=== PATIENT | female | born 1940 | race Caucasian/White ===

== ENCOUNTER → 2017-03-13 | Outpatient (CLI) | payer MEDICARE ==
[2016-08-16 14:47] VITALS: BP 135/74
[~2017-03-13] MED LIST: ATOR20TA58 PO; CALCIUM PLUS D; HYDR12.53 PO; LISI10TA2 PO; WARF-78 PO
--- NOTE | 2017-03-13 12:44 | KCIC ---
PROCEDURE CT scan of the paranasal sinuses without contrast 03/13/2017 HISTORY Chronic sinus drainage and cough. TECHNIQUE Unenhanced contiguous, 0.6 millimeter axial sections were obtained through the paranasal sinuses. 2 millimeter reconstructed sagittal, axial and coronal images were obtained. One or more of the following individualized dose reduction techniques were utilized for this study: 1. Automated exposure control. 2. Adjustment of the mA and/or kV according to patient size. 3. Use of iterative reconstruction technique. FINDINGS Mild mucosal thickening is seen involving the ethmoid air cells bilaterally and both maxillary sinuses. The remaining paranasal sinuses are clear. The ostiomeatal units are patent bilaterally. Mild bony nasal septal deviation to the right is noted. There is a large right mastoid effusion. The right middle ear cavity is opacified with fluid and/or inflammatory debris. IMPRESSION Mild mucosal thickening is seen involving the ethmoid air cells and both maxillary sinuses. The remaining paranasal sinuses are clear. No air-fluid level is seen. Large right mastoid effusion. Electronically signed by: Alin Gordon MD (March 13, 2017 12:43:04)
== END | disposition home or self-care (01) ==
LOC: KCIC CT 10:31
PROVIDERS: ATTEND Specialist
DX: J32.9 Chronic sinusitis, unspecified (principal)
CPT/HCPCS: 70486

== ENCOUNTER → 2018-08-03 | Outpatient (CLI) | payer MEDICARE ==
[2016-08-16 14:47] VITALS: BP 135/74
[2018-08-03 13:44] LABS: BASO # 0.1 x10^3/uL (0.0-0.2); BASO % 1 % (0-3); EOS # 0.1 x10^3/uL (0.0-0.7); EOS % 1 % (0-3); HEMATOCRIT 38.7 % (36.0-47.0); HEMOGLOBIN 13.5 g/dL (12.0-15.5); LYMPH # 0.9 x10^3/uL (1.0-4.8); LYMPH % 16 % (24-48); MEAN CORPUSCULAR HEMOGLOBIN 33 pg (25-35); MEAN CORPUSCULAR HGB CONC 35 g/dL (31-37); MEAN CORPUSCULAR VOLUME 94 fL (79-100); MONO # 0.4 x10^3/uL (0.0-1.1); MONO % 7 % (0-9); NEUT # 4.4 x10^3uL (1.8-7.7); NEUT % 74 % (31-73); PLATELET COUNT 234 x10^3/uL (140-400); RED BLOOD COUNT 4.12 x10^6/uL (3.50-5.40); RED CELL DISTRIBUTION WIDTH 12.9 % (11.5-14.5); WHITE BLOOD COUNT 5.9 x10^3/uL (4.0-11.0)
[2018-08-03 13:49] LABS: BILIRUBIN,URINE NEGATIVE (NEG); CLARITY,URINE CLEAR; COLOR,URINE YELLOW; NITRITE,URINE NEGATIVE (NEG); PROTEIN,URINE NEGATIVE (NEG-TRACE); UROBILINOGEN,URINE 0.2 mg/dL (0.2 mg/dL)
[2018-08-03 13:55] LABS: PROTHROMBIN TIME PATIENT 13.5 SEC (11.7-14.0)
[2018-08-03 14:02] LABS: ALBUMIN 3.9 g/dL (3.4-5.0); CALCIUM 9.4 mg/dL (8.5-10.1); CREATININE 0.9 mg/dL (0.6-1.0); GFR 60.9; POTASSIUM 3.9 mmol/L (3.5-5.1)
--- NOTE | 2018-08-03 14:06 | EKG ---
[facility] [address] [place] [address] Test Date: 2018-08-03 Test Time: 14:00:26 Pat Name: ROSCOE SANCHEZ Department: Room: Gender: F Fruit Tester: : 1940 Requested By: FRIDA SILVA Order Number: [id number] Reading MD: Noah Michel MD Measurements Intervals [place] Rate: 62 P: 42 VA: 126 QRS: 47 QRSD: 84 T: 54 QT: 394 QTc: 402 Interpretive Statements SINUS RHYTHM Electronically Signed On 08-05-2018 12:21:10 CDT by Noah Michel MD
[2018-08-03 14:27] LABS: BACTERIA,URINE 0 /HPF (0-FEW); RBC,URINE RARE /HPF (0-2); SQUAMOUS EPITHELIAL CELL,UR OCC /LPF; WBC,URINE 0 /HPF (0-4)
--- NOTE | 2018-08-03 15:01 | RAD ---
AP and Lateral Views of the Chest 08/03/2018 12:59 PM Indication: PRE OP FOR RIGHT KNEE REPLACEMENT ON 08/25/18 Comparison: Chest radiograph July 22, 2016 Findings: No pneumothorax or pleural effusion is seen. No focal consolidation or infiltrate is identified. Mild left basilar scarring versus prominent pericardial fat noted. Heart size is normal. Bony thorax is grossly intact. IMPRESSION: No radiographic evidence of acute cardiopulmonary process. Electronically signed by: Ras Curtis MD (08/03/2018 2:58 PM) [id number]
== END | disposition home or self-care (01) ==
LOC: SURGPAT 12:46
PROVIDERS: ATTEND Orthopaedic Surgery
DX: Z01.818 Encounter for other preprocedural examination (principal); M17.11 Unilateral primary osteoarthritis, right knee; E78.00 Pure hypercholesterolemia, unspecified; I10 Essential (primary) hypertension; E66.9 Obesity, unspecified; K21.9 Gastro-esophageal reflux disease without esophagitis; F17.200 Nicotine dependence, unspecified, uncomplicated; Z98.42 Cataract extraction status, left eye; Z98.41 Cataract extraction status, right eye; Z90.710 Acquired absence of both cervix and uterus; Z90.721 Acquired absence of ovaries, unilateral
CPT/HCPCS: 36415; 71046; 80048; 81001; 82040; 82306; 85025; 85610; 85651; 85730; 87641; 93005

== ENCOUNTER 2018-08-25 10:33 | Inpatient (IN) | payer MEDICARE ==
--- NOTE | 2018-08-24 11:04 | PDOC1 ---
History and Physical Date of Admission Date of Admission DATE: 08/25/18 Identification/Chief Complaint Chief Complaint right knee osteoarthritis pain Source Source: Chart review History of Present Illness History of Present Illness The patient is a 77 y/o female with right knee pain for several years. The pain is exacerbated by movement and range of motion. She notes she has a history of knee instability. She has a history of a left total knee in 2012 with revision on 08/13/16. She states the left knee is now her good knee. She does occasionally experience some soreness and discomfort. The knee pain is exacerbated by bicycling. She is ready to proceed with right total knee arthroplasty today as she did get significant symptomatic relief from her left total knee arthroplasty. She arrived ambulating without assistive devices. Past Medical History Cardiovascular: HTN, Hyperlipidemia GI: GERD Renal/: Chronic renal insuff Past Surgical History Past Surgical History: Cataract Removal, Total knee replacement (left - 2012, with revision on 08/13/16), Hysterectomy Family History Family History: Cancer, Heart Disease Social History Smoke: No ALCOHOL: none Drugs: None Current Medications Current Medications Current Medications Morphine Sulfate 5 mg/Ropivacaine 60 ml/Epinephrine HCl 0.5 mg/Sodium Chloride 99 ml @ 99 mls/hr 1X ONCE INT ART ; Start 08/25/18 at 06:00; Stop 08/25/18 at 06:59 Active Scripts Active Reported [Calcium Plus D] DAILY LAST DOSE GIVEN: DATE:07/17/16 TIME:9:00 a.m. NEXT DOSE DUE: DATE:07/18/16 TIME:9:00 a.m. Atorvastatin Calcium 20 Mg Tablet 20 Mg PO HS LAST DOSE GIVEN: DATE:07/16/16 TIME:9:00 p.m. NEXT DOSE DUE: DATE:07/17/16 TIME:9:00 p.m. Lisinopril 10 Mg Tablet 10 Mg PO DAILY LAST DOSE GIVEN: DATE:07/17/16 TIME:9:00 a.m. NEXT DOSE DUE: DATE:07/18/16 TIME:9:00 a.m. Allergies Allergies: Coded Allergies: NSAIDS (Non-Steroidal Anti-Inflamma (Verified Allergy, Intermediate, ) DOESN'T TAKE BECAUSE OF KIDNEY DISEASE Tetanus Vaccines and Toxoid (Verified Allergy, Intermediate, Swelling, 08/03/18) ARM SWELLED aspirin (Verified Allergy, Intermediate, 08/03/18) DOESN'T TAKE BECAUSE OF KIDNEY DISEASE influenza virus vaccine, specific (Verified Allergy, Intermediate, Swelling, 08/03/18) Physical Exam General: Alert, Oriented X3, Cooperative, No acute distress HEENT: Atraumatic, EOMI Lungs: Normal air movement Heart: RRR Abdomen: Soft Extremities: No clubbing, No cyanosis, Normal pulses, Other (RIGHT KNEE: mildly antalgic gait. There is varus alignment. No masses. No detectable effusion. Tenderness on the medial and lateral joint lines. Range of motion is 2 -125 degrees. There is crepitus with range of motion, and pain at the extremes of motion. Pain with varus and valgus stress without subluxation or laxity. Muscle strength is normal (5/5) for quadriceps and hamstrings, and muscle tone is normal. The skin is normal with no scars, rashes, lesions or ulcers. Light touch sensation is intact. No edema and no varicosities. Dorsalis pedis pulse is intact and capillary refill is normal.) Skin: No rashes, No breakdown, No significant lesion Neuro: Normal speech, Sensation intact Psych/Mental Status: Mental status NL, Mood NL Images Images IMAGING REPORT Joint survey, hips knees and ankles Clinical information: Preoperative for total knee arthroplasty Comparison: None. Findings Bones: There is a left total knee arthroplasty with revision femoral stem and standard tibial component, with expected alignment. The angle between the right hip- ankle mechanical axis and the femoral shaft is 5 degrees. The angle between the left hip-ankle mechanical axis and the femoral shaft is 5 degrees. From hip to ankle, the right lower extremity is in 9 degrees of varus. From hip to ankle, the left lower extremity is in 2degrees of varus. Joints: There is narrowing of the right knee joint medially. The joint space of the prosthetic left knee joint appears normal. The hips and ankles show minimal degenerative changes. Soft tissue: Normal. Impression: Varus alignment of the right knee. Normal anatomic alignment of the left prosthetic knee. The difference between the mechanical axis and femoral shaft anatomic axis is 5 degrees bilaterally. Dictated and Signed Using Voice Recognition Software Felipe Rodarte MD VTE Prophylaxis Ordered VTE Prophylaxis Devices: Yes VTE Pharmacological Prophylaxi: Yes Assessment/Plan Assessment/Plan Right knee osteoarthritis pain. The patient would like to proceed with total knee replacement. We will send her to the [facility] preoperatively, and she will schedule at her convenience. We discussed the risks and benefits of knee replacement including bleeding, infection, post-operative stiffness, instability, ariane-prosthetic fracture, DVT and PE. All questions were answered. She would like to proceed with the surgery to improve her pain with activity. Follow up with me 10-14 days after surgery. MK MENDEZ Aug 24, 2018 11:04
[~2018-08-25] VITALS: Ht 160 cm; Wt 77.6 kg
[2018-08-25] VITALS (7 sets, daily range): BP systolic 121–160; BP diastolic 64–85
[~2018-08-25 10:33] MED LIST changes: +ACETAMINOPHEN 500 MG TABLET PO PRN; +HYDROmorphone 2 MG/ML VIAL IV PRN; +IV RINGERS,LACTATED 1000ML 1,000 ML IV SCH; +LIDOCAINE 1% PF 2 ML VIAL. ID PRN; +LIDOCAINE 2% PF Vial for OR 5 ML VIAL. ONE; +MORPHINE SULFATE 2 MG/ML VIAL. IV PRN; +ONDANSETRON PF 4 MG/2 ML VIAL. IV PRN; +PROCHLORPERAZINE 10 MG/2 ML VIAL. IV PRN; +PROPOFOL 20 ML IV ONE; +TRANEXAMIC ACID 1,000 MG in IV NS 50ML -- 1ST BAG INJ ONE; +TRANEXAMIC ACID 1,000 MG in IV NS 50ML -- 2ND BAG INJ ONE; +fentaNYL PF VIAL 100 MCG/2 ML VIAL IV PRN; +fentaNYL PF VIAL 100 MCG/2 ML VIAL ONE
[2018-08-25] MEDS ORDERED: VANCOMYCIN 1 GM VIAL. ONE (10:52)
[2018-08-25] MEDS ORDERED: TOBRAMYCIN POWDER 1.2 GM VIAL. ONE (10:53)
[2018-08-25] MEDS ORDERED: iron (11:26)
[2018-08-25] MEDS ORDERED: DEXAMETHASONE SOD PHOS 20 MG/5 ML VIAL. ONE (13:34)
[2018-08-25] MEDS ORDERED: SEVOFLURANE 61 TO 120 MINUTES. IH ONE (13:34)
[2018-08-25] MEDS ORDERED: ONDANSETRON PF 4 MG/2 ML VIAL. ONE (13:51)
[2018-08-25] MEDS ORDERED: hydrALAZINE 20 MG/ML VIAL. ONE (14:15)
[2018-08-25] MEDS ORDERED: fentaNYL PF VIAL 100 MCG/2 ML VIAL ONE ×3 (14:19→16:24)
--- NOTE | 2018-08-25 15:51 | PDOC4 ---
Operative Note Operative Note Date of Procedure: August 25, 2018 Pre-Op Diagnosis: Osteoarthritis right knee Post-Op Diagnosis: Osteoarthritis right knee Procedure: right total knee arthroplasty with patella resurfacing Surgeon: Frida Rodarte MD Ssn/Ssbn Assistant Navigator: Michelle Murrell PA-C Anesthesia: General EBL: 100 mL Specimens Obtained: right knee bone and soft tissue Complications: none Implant Company: [employer] Drains: hemovac plus pain catheter Tourniquet time: 51 Minutes Tourniquet Pressure: 350 mm Hg Indications for Procedure: Arthritis pain unrelieved by nonoperative management Findings: Severe osteoarthritis with bone on bone contact medially with full thickness cartilage loss in the patellofemoral and lateral compartments, large medial osteophytes required removal with osteotome Implants used: Size 3 right bicruciate stabilized Journey II BCS cobalt chrome femoral component, size 2 right Journey nonporous tibial baseplate, size 1-2 13 mm right Journey II BCS XLPE constrained articular insert, 29 mm oval Aura II resurfacing patellar component Procedure in Detail: The patient was identified in the preoperative holding area, and the correct right lower extremity was marked by me. The patient was taken to the operating room where the patient was anesthetized by the Department of Anesthesia. Preoperative antibiotics were given intravenously. Tranexamic acid 1 g was given intravenously for intraoperative hemostasis. A "time-out" procedure was performed. The patient was positioned supine on the operative table with a tourniquet on the upper right thigh. The right lower limb was thoroughly scrubbed, then sterile surgical prep solution was applied, and the limb was draped in sterile fashion. An impervious stockinet and adhesive drape were used such that the skin was entirely covered. An Garcia leg davis was used. The operating team wore personal exhaust-ventilated hoods. The limb exsanguinated with an Esmarch bandage, and the tourniquet was inflated. A midline skin incision was made with a scalpel using the patella and tibial tubercle as landmarks. Electrocautery was used for hemostasis. My finance assistant used rake retractors. A medial parapatellar arthrotomy incision was used with extension into the distal quadriceps tendon. The patella was retracted laterally and Hohmann retractors were now used by my finance assistant. Excess synovium, the menisci, and the cruciate ligaments were resected sharply. The patella was assessed and excess synovium and osteophytes around the patellar articulation were removed. The patella was measured with a caliper, cut freehand with a saw using caliper measurements, sized, and then drilled for an oval three-pegged patella component. Periarticular anesthetic injection was used in the suprapatellar pouch and distal quadriceps muscle. Whitesides's line and the transepicondylar axis were marked on the femur. An intra-medullary 5 degree cutting guide was pinned to the femur, and a distal femoral cut was made with an oscillating saw. An additional 2 mm resection was used due to the deep femoral sulcus, and deficient condyle. My finance assistant held Hohmann retractors and an Army-Mims retractor to protect the medial and lateral collateral ligaments, the patellar tendon, the skin and the other soft tissues. A posterior referencing guide was applied with external rotation of 3 to match Whitesides line. A 5-in-1 Journey II cutting guide was then applied and pinned to the femur. The posterior, anterior, and all chamfer cuts were made with the oscillating saw. An extramedullary guide was pinned to the tibia and rotational alignment and the planned resection thickness assessed. An external alignment [place] was used to verify the planned cut in the varus-valgus plane and regarding posterior slope referencing the tibial tubercle, the tibial shaft, the ankle joint, and the second metatarsal. The upper tibia was cut made with an oscillating saw. My finance assistant held Hohmann retractors and a posterior cruciate ligament retractor to protect the medial and lateral collateral ligaments, the patellar tendon, the skin, the peroneal nerve and the other soft tissues. The upper tibia was sized with a trial baseplate. The posterior compartment was cleared of osteophytes and loose bodies. Periarticular anesthetic injection was used in the posterior compartment. The box cut for a posterior stabilized component was made. A preliminary reduction was performed with a trial femur, trial tibial baseplate and trial polyethylene. Soft-tissue balancing was now performed, and extension and rotation of the alignments was checked using a guide [place] in the tibial trial and a guide pin in the femur. No additional releases were required. The stability was assessed using different thicknesses of tibial articular surface to find satisfactory stability and good range of motion. The rotation of the tibial component was marked on the upper tibia. Final trial reduction was now performed verifying patella tracking and tibiofemoral stability and alignment. The tibia preparation was completed with a drill, saw, and fin punch at the previously noted rotation. The final implants were verified and opened. Outer gloves were changed by the operating team. The bone cuts were washed thoroughly with the Igor InterPulse device and dried. I requested that Ms. Murrell leave the room while the cement was mixed. Two packages of Cloud + Nephew Rally MV bone cement were mixed in powdered form with Vancomycin 1gm and Tobramycin 1.2 gm, and then vacuum-mixed with the monomer, and placed into a cement gun. The cut surfaces of the bone were thoroughly dried with Tavarez-tip suction and with laparotomy sponges for cement interdigitation. The final components were cemented into place. The knee was kept at full extension while the cement hardened, and excess cement was removed. Tranexamic acid 1 g was redosed intravenously for additional intraoperative hemostasis. Ms. Murrell scrubbed, hooded, gowned, gloved, and returned to the case. The tourniquet was released, and electrocautery was used for hemostasis. A final periarticular anesthetic injection was used for pain relief. A final check of [id number] and stability was made, and the polyethylene implant final size was chosen. The polyethylene implant was secured to the tibial baseplate, and the knee was reduced a final time and range of motion and stability was confirmed. Thorough irrigation was used. Hemovac and pain catheter were used.The arthrotomy was closed with interrupted [id number] # 1 PDS suture. The arthrotomy incision was then run with #1 STRATAFIX Symmetric PDS Plus Knotless suture. The subcutaneous tissues were closed with #2-0 Vicryl by my finance assistant. The skin was approximated with leila by my finance assistant. The skin incision was then covered and reinforced with YECENIA single use negative pressure wound therapy dressing Needle and sponge counts were correct. There were no apparent complications. The patient returned to the recovery room in stable condition. FRIDA RODARTE MD Aug 25, 2018 15:51
[2018-08-25] MEDS ORDERED: traMADol 50 MG TABLET PO PRN ×2 (16:00)
[2018-08-25] MEDS ORDERED: fentaNYL PF VIAL 100 MCG/2 ML VIAL IV PRN ×2 (16:00)
[2018-08-25] MEDS ORDERED: oxyCODONE/APAP 7.5/325 1 TAB TABLET PO PRN (16:00)
[2018-08-25] MEDS ORDERED: 0.9 % SODIUM CHLORIDE 10 ML DISP.SYRIN. IV PRN (16:00)
[2018-08-25] MEDS ORDERED: diphenhydrAMINE HCL 25 MG CAPSULE PO PRN (16:00)
[2018-08-25] MEDS ORDERED: MORPHINE SULFATE 10 MG/ML VIAL. IV PRN (16:00)
[2018-08-25] MEDS ORDERED: DEXTROSE 50% 25 GM / 50ML DISP.SYRIN. IV PRN (16:00)
[2018-08-25] MEDS ORDERED: ZOLPIDEM 5 MG TABLET. PO PRN (16:00)
[2018-08-25] MEDS ORDERED: ACETAMINOPHEN 325 MG TABLET. PO PRN (16:00)
[2018-08-25] MEDS ORDERED: METOCLOPRAMIDE HCL 10 MG/2 ML VIAL. IV PRN (16:00)
[2018-08-25] MEDS ORDERED: HYDROcodone/APAP 10/325 1 TAB TABLET PO PRN (16:00)
[2018-08-25] MEDS ORDERED: PROCHLORPERAZINE 10 MG/2 ML VIAL. IV PRN (16:00)
[2018-08-25] MEDS ORDERED: oxyCODONE/APAP 5/325 1 TAB TABLET PO PRN (16:00)
[2018-08-25] MEDS ORDERED: MORPHINE SULFATE 2 MG/ML VIAL. IV PRN (16:00)
[2018-08-25] MEDS ORDERED: PROCHLORPERAZINE 5 MG TABLET. PO PRN (16:00)
[2018-08-25] MEDS ORDERED: MORPHINE SULFATE 4 MG/ML VIAL. IV PRN ×2 (16:00)
[2018-08-25] MEDS ORDERED: WARFARIN 7.5 MG TABLET. PO ONE (16:00)
[2018-08-25] MEDS ORDERED: CALCIUM CARBONATE 500 MG TAB.CHEW PO PRN (16:00)
[2018-08-25] MEDS: fentaNYL PF VIAL 100 MCG/2 ML VIAL IV PRN ×4 (16:04→16:55)
--- NOTE | 2018-08-25 16:29 | RAD ---
AP and lateral views right knee. 08/25/2018 4:13 PM Indication: POST OP RT KNEE PREPLACEMENT Comparison Study: None. Findings: There are postsurgical changes following recent total knee arthroplasty. Hardware is appropriate in position without evidence of complication. No fractures or dislocations are identified. Stigmata of recent surgery including surgical drainage catheter and intra-articular gas are noted. Impression: Expected postsurgical changes following recent right total knee arthroplasty. Electronically signed by: Ras Curtis MD (08/25/2018 4:26 PM) [id number]
[2018-08-25] MEDS: FERROUS SULFATE 325 MG TABLET. PO SCH (17:00)
[2018-08-25 17:35] LABS: PROTHROMBIN TIME PATIENT 13.4 SEC (11.7-14.0)
[2018-08-25] MEDS ORDERED: WARFARIN 5 MG TABLET. PO ONE (18:00)
[2018-08-25] MEDS: ATORVASTATIN CALCIUM 20 MG TABLET PO SCH (20:36)
[2018-08-25] MEDS: HYDROcodone/APAP 7.5/325MG 1 TAB TABLET PO PRN (20:37)
[2018-08-25] MEDS: IV DEXTROSE 5 %-0.45 % NACL 1,000 ML IV SCH (20:41)
[2018-08-26] MEDS: IV DEXTROSE 5 %-0.45 % NACL 1,000 ML IV SCH (05:02)
[2018-08-26 05:39] VITALS: BP 125/56
[2018-08-26 05:46] LABS: PROTHROMBIN TIME PATIENT 13.2 SEC (11.7-14.0)
[2018-08-26] MEDS ORDERED: MAGNESIUM HYDROXIDE 2,400 MG/30 ML ORAL.SUSP. PO PRN (06:00)
[2018-08-26 08:05] LABS: HEMATOCRIT 37.1 % (36.0-47.0); HEMOGLOBIN 12.8 g/dL (12.0-15.5)
[2018-08-26] MEDS: FERROUS SULFATE 325 MG TABLET. PO SCH ×2 (08:30→16:41)
[2018-08-26] MEDS: SENNOSIDES/DOCUSATE 8.6/50MG TABLET. PO SCH (08:30)
[2018-08-26] MEDS: MULTIVITAMIN with MINERAL TABLET. PO SCH (08:30)
[2018-08-26] MEDS: LISINOPRIL 10 MG TABLET PO SCH (08:34)
[2018-08-26 08:35] VITALS: BP 147/53
[2018-08-26] MEDS: HYDROcodone/APAP 7.5/325MG 1 TAB TABLET PO PRN ×3 (09:30→20:13)
--- NOTE | 2018-08-26 09:32 | PDOC ---
PROGRESS NOTES Subjective Subjective Pain controlled. Doing well from a knee standpoint, but having some nausea. Objective Vital Signs Vital Signs Date Time Temp Pulse Resp B/P (MAP) Pulse Ox O2 Delivery O2 Flow Rate FiO2 08/26/18 08:35 77 147/53 (84) 08/26/18 07:08 Room Air 08/26/18 05:39 98.3 18 94 98.3 08/25/18 20:37 2.0 Physical Exam Postop dressing dry and intact. Hemovac and pain catheter in place. Thigh and calf soft and nontender with negative Homans sign. Good AROM toes, foot, and ankle, with no sign of neurovascular injury nor compartment syndrome. Labs Laboratory Tests Test 08/25/18 17:15 08/26/18 04:30 Prothrombin Time 13.4 SEC (11.7-14.0) 13.2 SEC (11.7-14.0) Prothromb Time International Ratio 1.1 (0.8-1.1) 1.1 (0.8-1.1) Hemoglobin 12.8 g/dL (12.0-15.5) Hematocrit 37.1 % (36.0-47.0) Mean Corpuscular Hemoglobin Concent 34 g/dL (31-37) Laboratory Tests Test 08/25/18 17:15 08/26/18 04:30 Prothrombin Time 13.4 SEC (11.7-14.0) 13.2 SEC (11.7-14.0) Prothromb Time International Ratio 1.1 (0.8-1.1) 1.1 (0.8-1.1) Hemoglobin 12.8 g/dL (12.0-15.5) Hematocrit 37.1 % (36.0-47.0) Mean Corpuscular Hemoglobin Concent 34 g/dL (31-37) Imaging Postoperative knee x-rays report reviewed, images independently reviewed. Satisfactory TKA alignment with no apparent complications. Assessment Assessment POD #1 TKA Plan Plan of Care Continue POC including PT and DVT prophylaxis. MK MENDEZ Aug 26, 2018 09:32
[2018-08-26] MEDS ORDERED: BISACODYL 10 MG SUPP.RECT. PR PRN (16:00)
[2018-08-26 18:21] VITALS: BP 159/57
[2018-08-26] MEDS: ATORVASTATIN CALCIUM 20 MG TABLET PO SCH (20:13)
[2018-08-27] MEDS: HYDROcodone/APAP 7.5/325MG 1 TAB TABLET PO PRN ×5 (00:08→21:20)
[2018-08-27 06:30] VITALS: BP 142/62
[2018-08-27 07:07] LABS: HEMATOCRIT 31.2 % (36.0-47.0)
[2018-08-27 07:32] LABS: PROTHROMBIN TIME PATIENT 15.7 SEC (11.7-14.0)
[2018-08-27] MEDS: SENNOSIDES/DOCUSATE 8.6/50MG TABLET. PO SCH (09:24)
[2018-08-27] MEDS: FERROUS SULFATE 325 MG TABLET. PO SCH ×2 (09:24→17:03)
[2018-08-27] MEDS: MULTIVITAMIN with MINERAL TABLET. PO SCH (09:24)
[2018-08-27] MEDS: LISINOPRIL 10 MG TABLET PO SCH (09:24)
--- NOTE | 2018-08-27 12:49 | PDOC ---
PROGRESS NOTES Subjective Subjective Pain controlled Objective Vital Signs Vital Signs Date Time Temp Pulse Resp B/P (MAP) Pulse Ox O2 Delivery O2 Flow Rate FiO2 08/27/18 09:24 96 144/68 08/27/18 09:24 Room Air 08/27/18 06:30 98.3 18 95 98.3 08/26/18 18:21 95.0 Physical Exam Knee YECENIA dressing with spotty drainage only, and slight bleeding from hemovac site. Calf and thigh soft and NT. Good AROM toes, foot and ankle with negative Homans and no sign of neurovascular injury nor compartment syndrome. Pain catheter and hemovac have been removed. Not yet safely walking with walker Labs Laboratory Tests Test 08/25/18 17:15 08/26/18 04:30 08/27/18 06:20 Prothrombin Time 13.4 SEC (11.7-14.0) 13.2 SEC (11.7-14.0) 15.7 SEC (11.7-14.0) Prothromb Time International Ratio 1.1 (0.8-1.1) 1.1 (0.8-1.1) 1.3 (0.8-1.1) Hemoglobin 12.8 g/dL (12.0-15.5) 11.0 g/dL (12.0-15.5) Hematocrit 37.1 % (36.0-47.0) 31.2 % (36.0-47.0) Mean Corpuscular Hemoglobin Concent 34 g/dL (31-37) 35 g/dL (31-37) Laboratory Tests Test 08/27/18 06:20 Hemoglobin 11.0 g/dL (12.0-15.5) Hematocrit 31.2 % (36.0-47.0) Mean Corpuscular Hemoglobin Concent 35 g/dL (31-37) Prothrombin Time 15.7 SEC (11.7-14.0) Prothromb Time International Ratio 1.3 (0.8-1.1) Imaging Postoperative knee x-rays. Report reviewed, images independently reviewed. Satisfactory TKA alignment with no apparent complications. Assessment Assessment POD 2 after TKA Plan Plan of Care Continue PT and DVT prophylaxis. Discharge planning for tomorrow. FRIDA SILVA MD Aug 27, 2018 12:49
[2018-08-27] MEDS ORDERED: WARFARIN 5 MG TABLET. PO ONE (16:00)
[2018-08-27 18:08] VITALS: BP 149/66
[2018-08-27] MEDS: ATORVASTATIN CALCIUM 20 MG TABLET PO SCH (21:19)
[2018-08-28] MEDS: HYDROcodone/APAP 7.5/325MG 1 TAB TABLET PO PRN ×2 (04:22→12:35)
[2018-08-28 06:10] VITALS: BP 133/89
[2018-08-28 06:56] LABS: HEMATOCRIT 33.4 % (36.0-47.0); HEMOGLOBIN 11.8 g/dL (12.0-15.5)
[2018-08-28 07:15] LABS: PROTHROMBIN TIME PATIENT 15.9 SEC (11.7-14.0)
[2018-08-28] MEDS: FERROUS SULFATE 325 MG TABLET. PO SCH (08:00)
[2018-08-28] MEDS: MULTIVITAMIN with MINERAL TABLET. PO SCH (08:00)
[2018-08-28] MEDS: SENNOSIDES/DOCUSATE 8.6/50MG TABLET. PO SCH (08:03)
[2018-08-28] MEDS: LISINOPRIL 10 MG TABLET PO SCH (08:03)
[2018-08-28 12:30] VITALS: BP 141/60
--- NOTE | 2018-08-28 12:37 | PDOC3 ---
Discharge Summary Visit Information Date of Admission: Aug 25, 2018 Date of Discharge: Aug 28, 2018 Admitting Diagnosis: right knee osteoarthritis pain Brief Hospital Course Allergies Allergies Coded Allergies Type Severity Reaction Last Updated Verified NSAIDS (Non-Steroidal Anti-Inflamma Allergy Intermediate 08/03/18 Yes Tetanus Vaccines and Toxoid Allergy Intermediate Swelling 08/03/18 Yes aspirin Allergy Intermediate 08/03/18 Yes influenza virus vaccine, specific Allergy Intermediate Swelling 08/03/18 Yes Vital Signs Vital Signs Date Time Temp Pulse Resp B/P (MAP) Pulse Ox O2 Delivery O2 Flow Rate FiO2 08/28/18 12:35 18 Room Air 08/28/18 08:03 91 139/67 08/28/18 06:10 99.1 97 99.1 Lab Results Laboratory Tests Test 08/27/18 06:20 08/28/18 06:04 Hemoglobin 11.0 g/dL (12.0-15.5) 11.8 g/dL (12.0-15.5) Hematocrit 31.2 % (36.0-47.0) 33.4 % (36.0-47.0) Mean Corpuscular Hemoglobin Concent 35 g/dL (31-37) 35 g/dL (31-37) Prothrombin Time 15.7 SEC (11.7-14.0) 15.9 SEC (11.7-14.0) Prothromb Time International Ratio 1.3 (0.8-1.1) 1.3 (0.8-1.1) Laboratory Tests Test 08/28/18 06:04 Hemoglobin 11.8 g/dL (12.0-15.5) Hematocrit 33.4 % (36.0-47.0) Mean Corpuscular Hemoglobin Concent 35 g/dL (31-37) Prothrombin Time 15.9 SEC (11.7-14.0) Prothromb Time International Ratio 1.3 (0.8-1.1) Brief Hospital Course 78 year old who presented with knee osteoarthritis, for elective total knee arthroplasty. The patient underwent total knee arthroplasty under general anesthesia the day of admission. Perioperative antibiotics and DVT prophylaxis were used. Postoperatively physical therapy and case management were consulted. The patient progressed and is stable for discharge. Discharge Information Condition at Discharge: Stable Follow Up: Weeks (2) Disposition/Orders: D/C to Another Facility ([place]) Scheduled Atorvastatin Calcium (Atorvastatin Calcium), 20 MG PO HS, (Reported) Lisinopril (Lisinopril), 10 MG PO DAILY, (Reported) [Calcium Plus D], DAILY, (Reported) [iron], DAILY, (Reported) Patient Instructions Patient Instructions Patient Instructions Continue to WBAT with walker. Keep dressing dry and intact. F/U with [facility] in 10-14 days. Call for appointment. Physical therapy for TKA Continue DVT prophylaxis. Coumadin clinic for dosing or managed by Dhaval Titus. MK MENDEZ Aug 28, 2018 12:37
--- NOTE | 2018-08-28 12:39 | DISCH ---
DISCHARGE DISCHARGE INFORMATION: DISCHARGE DATE: Aug 28, 2018 FINAL DIAGNOSIS osteoarthritis knee, TKA CONDITION ON DISCHARGE: Stable CODE STATUS: Code Status: Full PENITENTIARY: SNF STAY <30 DAYS: Yes HOSPICE: HOSPICE: No HOSPICE EVAL & TREAT: No LTAC: ADMIT TO LTAC: Yes POST DISCHARGE ORDERS: ACTIVITY ORDERS: Activity as tolerated, Progressive ambulation WEIGHT BEARING STATUS: Full weight bearing BATHING ORDERS: Shower-keep dressing dry, No Tub Bath until see WOUND/INCISION CARE: Ice to area for comfort, Keep wound/cast CDI, Keep wound elevated, Do not change dressing TREATMENT/EQUIPMENT ORDERS: ADAPTIVE EQUIPMENT NEEDED: Walker Physical Therapy For: Evalulation/Treatment Occupational Therapy For: Evaluation/Treatment DISCHARGE MEDICATIONS: Home Meds Reported Medications [iron] 325 No Conflict Check, DAILY 08/25/18 [Calcium Plus D] No Conflict Check, DAILY LAST DOSE GIVEN: DATE:07/17/16 TIME:9:00 a.m. NEXT DOSE DUE: DATE:07/18/16 TIME:9:00 a.m. 07/22/16 Atorvastatin Calcium (ATORVASTATIN CALCIUM) 20 Mg Tablet, 20 MG PO HS for FOR CHOLESTEROL, #30 TAB 0 Refills LAST DOSE GIVEN: DATE:07/16/16 TIME:9:00 p.m. NEXT DOSE DUE: DATE:07/17/16 TIME:9:00 p.m. 07/22/16 Lisinopril (LISINOPRIL) 10 Mg Tablet, 10 MG PO DAILY for FOR HYPERTENSION, #30 TAB 0 Refills LAST DOSE GIVEN: DATE:07/17/16 TIME:9:00 a.m. NEXT DOSE DUE: DATE:07/18/16 TIME:9:00 a.m. 07/22/16 FRIDA SILVA MD Aug 28, 2018 12:39
--- NOTE | 2018-08-28 12:43 | PDOC ---
PROGRESS NOTES Subjective Subjective Doing well, no complaints. Planning for discharge today after PM therapy Objective Vital Signs Vital Signs Date Time Temp Pulse Resp B/P (MAP) Pulse Ox O2 Delivery O2 Flow Rate FiO2 08/28/18 12:35 18 Room Air 08/28/18 08:03 91 139/67 08/28/18 06:10 99.1 97 99.1 08/26/18 18:21 95.0 Physical Exam YECENIA intact and dry. Calves soft and NT. Minimal swelling. Labs Laboratory Tests Test 08/27/18 06:20 08/28/18 06:04 Hemoglobin 11.0 g/dL (12.0-15.5) 11.8 g/dL (12.0-15.5) Hematocrit 31.2 % (36.0-47.0) 33.4 % (36.0-47.0) Mean Corpuscular Hemoglobin Concent 35 g/dL (31-37) 35 g/dL (31-37) Prothrombin Time 15.7 SEC (11.7-14.0) 15.9 SEC (11.7-14.0) Prothromb Time International Ratio 1.3 (0.8-1.1) 1.3 (0.8-1.1) Laboratory Tests Test 08/28/18 06:04 Hemoglobin 11.8 g/dL (12.0-15.5) Hematocrit 33.4 % (36.0-47.0) Mean Corpuscular Hemoglobin Concent 35 g/dL (31-37) Prothrombin Time 15.9 SEC (11.7-14.0) Prothromb Time International Ratio 1.3 (0.8-1.1) Assessment Assessment POD #3 TKA Plan Plan of Care Discharge to SNU today. Continue aspirin BID for DVT prophylaxis. Continue PT and OT. FRIDA SILVA MD Aug 28, 2018 12:43
[2018-08-28] MEDS ORDERED: WARF-78 PO (12:59)
[2018-08-28] MEDS ORDERED: FERR325T14 PO (13:00)
[2018-08-28] MEDS ORDERED: HYDR-2762 PO (13:01)
[2018-08-28] MEDS ORDERED: WARFARIN 5 MG TABLET. PO ONE (15:00)
--- NOTE | 2018-08-30 18:06 | PATHOLOGY ---
[facility] Accession Number: [id number] . 01 Material submitted: . BONE, RIGHT KNEE . 01 Clinical history: . Right knee osteoarthritis pain . 02 Diagnosis: Bone, right knee, removal: - Degenerative osteoarthritis. (SKM:luciana; 08/28/2018) QMS/08/28/2018 . 02 Electronically signed: . David Carver MD, Pathologist NPI- [id number] . 01 Gross description: . The specimen is received in formalin, labeled "Henchek, Olga, bone right knee", consists of several segments of brown bone with attached cordova-white soft tissue measuring 10.5 x 6.0 x 2.5 cm in aggregate. Tibial plateau and patella are identified, but no discrete meniscus. Peripheral osteophytes and eburnation are identified. [employer] Decorating [employer] tissue is submitted in A1 after decalcification. ([facility]; 08/26/2018) SHS/SHS . 02 Pathologist provided ICD-10: M17.11 . 02 CPT . 321207, 433378 Specimen Comment: A courtesy copy of this report has been sent to Specimen Comment: [phone], . Specimen Comment: Report sent to / DR VALENZUELA Specimen Comment: A duplicate report has been generated due to demographic updates. Performed at: 01 [facility] [address], [place] [id number] MD Celso Gonzalez MD Phone: [phone] Performed at: 02 [facility] [address] [place], [place] [id number] MD Royce Raygoza MD Phone: [phone]
== END 2018-08-28 14:47 | DRG 470 ==
LOC: OPSVCIP 10:33 → 4 SOUTHEST 16:54
PROVIDERS: ADMIT Orthopaedic Surgery; ATTEND Orthopaedic Surgery
PROC: 0SRC0J9 Replacement of Right Knee Joint with Synthetic Substitute, Cemented, Open Approach (ICD-10-PCS; principal; 2018-08-25 14:15)
DX: M17.11 Unilateral primary osteoarthritis, right knee (principal); K21.9 Gastro-esophageal reflux disease without esophagitis; E78.5 Hyperlipidemia, unspecified; M25.761 Osteophyte, right knee; I12.9 Hypertensive chronic kidney disease with stage 1 through stage 4 chronic kidney disease, or unspecified chronic kidney disease; N18.9 Chronic kidney disease, unspecified; Z96.652 Presence of left artificial knee joint; Z90.710 Acquired absence of both cervix and uterus; Z88.6 Allergy status to analgesic agent; Z88.7 Allergy status to serum and vaccine; Z79.899 Other long term (current) drug therapy
CPT/HCPCS: 36415; 73560; 85014; 85018; 85610; 86850; 86900; 86901; 88305; 88311; A7015; C1713; J0171; J0360; J0690; J0780; J1100; J2001; J2270; J2405; J2704; J2795; J3010; J3260; J3370; J3490; J7030; J7120; 97116; 97150; 97530; 97535; A4461; C1769